=== PATIENT | female | born 2005 | race Two or more races ===

== ENCOUNTER 2024-05-21 04:14 | Emergency (ER) | payer MEDICAID, SELFPAY ==
[2024-05-21 04:15] VITALS: BP 120/80; PULSE 68; RESP 18; TEMP 36.9; O2SAT 98; BMI 25.6
--- NOTE | 2024-05-21 04:41 | XR_ITS ---
Examination: Pelvic ultrasound, transabdominal, complete Technique: Transabdominal ultrasound of the pelvis performed using grayscale imaging Date and time of exam: May 21, 2024 0513 hrs. Indications: Onset right lower abdominal pelvic pain today Findings: Uterus 6.6 x 3.2 x 3.7 cm No uterine mass or intrauterine gestation Endometrial stripe 0.7 cm Right ovary 2.4 x 1.3 x 2.3 cm arterial flow Left ovary 2.0 x 1.6 x 1.8 cm arterial flow No fluid in the cul-de-sac Impression: Negative examination
--- NOTE | 2024-05-21 04:42 | PD.EDRME ---
Rapid Medical Screening Exam RME Arrival date/time: 05/21/24 04:14 19-year-old female presents emergency department complaining of right lower abdomen/pelvic pain that is been ongoing since yesterday. Chief Complaint: Abdominal Pain Time Seen by Provider: 05/21/24 04:17 Vital signs: Vital Signs Temperature 98.4 F 05/21/24 04:15 Pulse Rate 68 05/21/24 04:15 Respiratory Rate 18 05/21/24 04:15 Blood Pressure 120/80 05/21/24 04:15 Pulse Oximetry (%) 98 05/21/24 04:15 Oxygen Delivery Method Room Air 05/21/24 04:15 Vital signs reviewed by provider: Yes
[2024-05-21 05:07] LABS: Basophils % (Auto) 0 % (0-2.5); Eosinophils # (Auto) 0.1 Thou/mm3 (0.0-0.5); Eosinophils % (Auto) 1 % (0-10); Hematocrit 37.7 % (36.0-46.0); Immature Granulocytes % (Auto) 0 % (0-0); Immature Granulocytes Auto 0.02 Thou/mm3 (0.00-0.00); Lymphocytes # (Auto) 1.7 Thou/mm3 (1.0-4.8); Lymphocytes % (Auto) 26 % (10-50); Mean Corpuscular HGB Conc 34.5 g/dl (31.0-37.0); Mean Corpuscular Hemoglobin 31.3 pg (25.0-35.0); Mean Corpuscular Volume 91 fL (80-100); Monocytes # (Auto) 0.6 Thou/mm3 (0.0-0.8); Monocytes % (Auto) 10 % (0-12); Neutrophils # (Auto) 4.2 Thou/mm3 (1.8-7.7); Neutrophils % (Auto) 63 % (37-80); Nucleated Red Blood Cell % 0 /100 WBC (0); Platelet Count 197 Thou/mm3 (140-440); RDW Standard Deviation 39.1 fL (36.4-46.3); Red Blood Count 4.15 Miln/mm3 (4.00-5.20); White Blood Count 6.7 Thou/mm3 (4.5-11.0)
[2024-05-21 05:28] LABS: HCG,Qualitative Serum Negative
[2024-05-21 05:31] LABS: Collection Type, Urine Clean Catch
[2024-05-21 05:36] LABS: Bacteria,Urine Rare; Bilirubin,Urine Negative (Negative); Blood,Urine 2+ (Negative); Clarity,Urine Clear (Clear/Hazy); Color,Urine Yellow (Lt Yel-Yel); Culture Indicated,Urine Not Indicated; Glucose, Urine Negative (Negative); Ketones,Urine Negative (Negative); Leukocyte Esterase,Urine Negative (Negative); Nitrite,Urine Negative (Negative); PH,Urine 6.5 (5.0-7.0); Protein,Urine 1+ (Neg - Trace); RBC,Urine 1 /hpf (0-3); Specific Gravity,Urine 1.027 (1.001-1.035); Squamous Epithelial Cell,Urine 2 /hpf (0-5); Urobilinogen,Urine Negative mg/dL (0.0-1.0); WBC,Urine 3 /hpf (0-5)
[2024-05-21 05:37] LABS: Alanine Aminotransferase 13 U/L (10-49); Albumin, Serum 4.4 gm/dL (3.5-5.0); Albumin/Globulin Ratio 1.8 (1.2-2.2); Alkaline Phosphatase 55 U/L (46-116); Anion Gap 8 (7-16); Aspartate Amino Transferase 15 U/L (0-34); BUN/Creatinine Ratio 16 Ratio (12-20); Bilirubin,Total 0.6 mg/dL (0.3-1.2); Blood Urea Nitrogen 13 mg/dL (9-23); Calcium 9.5 mg/dL (8.3-10.6); Calcium (Corrected) 9.5 mg/dL (8.5-10.1); Chloride 103 mMol/L (98-107); Creatinine (Component) 0.8 mg/dL (0.6-1.3); Estimated Creatinine Clearance 98.2 mL/min (>60); Globulin 2.5 gm/dL (2.3-3.5); Glucose 94 mg/dL (74-106); Lipase 33 U/L (12-53); Osmolality,Calculated 272 (275-295); Potassium 4.1 mMol/L (3.4-5.1); Sodium 136 mMol/L (136-145); Total Protein 6.9 gm/dL (5.7-8.2); eGFR > 60 See Note
[2024-05-21 05:38] LABS: C-Reactive Protein < 0.4 mg/dL (0.0-0.9)
--- NOTE | 2024-05-21 06:17 | PRELIM_ITS ---
Pelvic ultrasound (transabdominal). May 21, 2024 at 0513 hours Clinical history: Right pelvic pa in Technique: Real-time ultrasound was performed using Duplex scanning including arterial inflow, earle ous outflow, color and spectral Doppler analysis of both ovaries.Comparison: No prior study is availa ble for comparison. Findings:The uterus is normal in size measuring 6.7 x 3.2 x 3.7 cm. The endometri um is normal and measures 0.7 cm. No intrauterine gestational sac is seen at this time. The right ova ry measures 2.4 x 1.3 x 2.3 cm and is unremarkable.The left ovary measures 2 x 1.6 x 1.8 cm and is un remarkable.No sonographic evidence of ovarian torsion is demonstrated on the submitted images. No adn exal mass is demonstrated.There is no free fluid.Impression:1. No evidence of intrauterine gestation at this time. Possibilities include very early intrauterine , recent or occult ecto pic gestation. Recommend correlation with serum beta hCG and sonographic follow up.2. No sonographic evidence of ovarian torsion is demonstrated on the submitted images. Report Electronically Signed By : Blas Lindquist 05/21/2024 6:16:42 AM [EST]
--- NOTE | 2024-05-21 06:49 | PD.EDABDPN ---
ED Abdominal Pain RME/HPI General Chief Complaint: Abdominal Pain Stated complaint: RIGHT ABD PAIN Time seen by provider: 05/21/24 04:17 Arrival date/time: 05/21/24 04:14 19-year-old female with no significant medical problems presents the emergency department complaints of right-sided pelvic pain. Patient reports symptom onset yesterday patient reports since then symptoms have resolved and intermittent Limitations: no limitations RME / HPI RME / HPI narrative: 05/21/24 04:14 19-year-old female presents emergency department complaining of right lower abdomen/pelvic pain that is been ongoing since yesterday. Related Data Previous Rx's ?Medication ?Instructions ?Recorded diphenhydramine HCl 25 mg capsule 25 mg PO TID #14 caps 07/28/18 (Benadryl) ondansetron 4 mg disintegrating 4 mg PO QID PRN nausea and 07/28/18 tablet vomiting #20 tabs ibuprofen 600 mg tablet 600 mg PO Q6H #30 tabs 09/07/23 ondansetron 4 mg disintegrating 4 mg PO Q8H PRN nausea and 09/10/23 tablet vomiting #10 tabs Allergies Allergy/AdvReac Type Severity Reaction Status Date / Time No Known Allergies Allergy Verified 05/21/24 04:16 Review of Systems Review of Systems Systems Reviewed: All systems reviewed, normal except as documented Constitutional Constitutional: Reports system reviewed and no additional complaints, except as documented, Denies fever(s) and Denies headache(s) Eyes Eyes: Reports system reviewed and no additional complaints, except as documented and Denies blurry vision ENT Ears, Nose, Mouth, and Throat: Reports system reviewed and no additional complaints, except as documented, Denies headache(s), Denies nasal congestion and Denies nasal discharge Cardiovascular Cardiovascular: Reports system reviewed and no additional complaints, except as documented, Denies chest pain and Denies dyspnea Respiratory Respiratory: Reports system reviewed and no additional complaints, except as documented, Denies chest congestion, Denies cough and Denies dyspnea Gastrointestinal Gastrointestinal: Reports system reviewed and no additional complaints, except as documented and Denies abdominal pain Genitourinary Genitourinary: Reports system reviewed and no additional complaints, except as documented, Denies difficulty voiding and Reports pelvic pain Integumentary/Breasts Skin/Breast: Reports system reviewed and no additional complaints, except as documented and Denies rash Neurologic Neurologic: Reports system reviewed and no additional complaints, except as documented, Reports as per HPI and Denies headache(s) Past Medical History Past Medical History NEUROLOGIC: Negative Neurological Disorders CARDIAC: Negative Cardiac Disorders Social History SMOKING STATUS: Never smoker ED Exam General Limitations: Present no limitations General appearance: Present alert and in no apparent distress Head Head exam: Present atraumatic Eye Eye exam: Present normal appearance, PERRL and EOMI ENT ENT exam: Present normal exam, normal oropharynx and mucous membranes moist Neck Neck exam: Present normal inspection, full ROM and trachea midline Chest Chest inspection: Present normal inspection and symmetric chest wall rise Respiratory Respiratory exam: Present normal lung sounds bilaterally Cardiovascular Cardiovascular exam: Present regular rate, normal rhythm and normal heart sounds Abdominal Exam Abdominal exam: Present soft and normal bowel sounds; Absent distention, tenderness, guarding, rebound, rigidity, Hanson's sign or tenderness at McBurney's Point Abdominal tenderness: Absent RUQ or RLQ Extremities Exam Extremities exam: Present normal inspection and full ROM Back Exam Back exam: Present normal inspection and full ROM Neurological Exam Neurological exam: Present alert, oriented X3 and CN II-XII intact Psychiatric Psychiatric exam: Present normal affect and normal mood Skin Skin exam: Present warm, dry, intact and normal color Course Quality Measures none Orders Category Date Time Status US pelvic complete Stat Exams 05/21/24 04:41 Completed CBC Stat Lab 05/21/24 04:57 Completed CMP [Comprehensive Metabolic Panel] Stat Lab 05/21/24 04:57 Completed CRP [C-Reactive Protein] Stat Lab 05/21/24 04:57 Completed HCG,Qualitative Serum Stat Lab 05/21/24 04:57 Completed Lipase Stat Lab 05/21/24 04:57 Completed Urinalysis, C/S if Indicated Stat Lab 05/21/24 05:14 Completed Vital Signs Vital signs: Vital Signs Temperature 98.4 F 05/21/24 04:15 Pulse Rate 68 05/21/24 04:15 Respiratory Rate 18 05/21/24 04:15 Blood Pressure 120/80 05/21/24 04:15 Pulse Oximetry (%) 98 05/21/24 04:15 Oxygen Delivery Method Room Air 05/21/24 04:15 O2 saturation 98% r/a wnl Abdominal Pain MDM MDM Narrative MDM Narrative:: 19-year-old female with no significant medical problems presents the emergency department complaints of right-sided pelvic pain. Patient reports symptom onset yesterday patient reports since then symptoms have resolved and intermittent On exam patient well-appearing patient does not appear ill or toxic in no acute distress. Patient has nontender abdomen no McBurney's point tenderness Lab work as well as ultrasound completed Lab work no leukocytosis CRP is within normal limits ultrasound no acute emergent findings At the time of my encounter with this patient patient smiling patient does not appear ill or toxic Patient discharged home in no distress to follow-up with primary care doctor in the next 24 to 48 hours and for any worsening symptoms to return to the ER immediately Patient data External records reviewed:: [facility] previous records Clinical information provided by:: patient Social determinants that could affect healthcare access:: none Patient has the following chronic illnesses:: None How is presenting disease/condition affected by chronic disease/condition?: no chronic disease Evaluation data The following diagnostics were reviewed and interpreted by me:: lab results and radiology exam(s) Lab and/or radiology exams considered but not ordered:: Labs and radiology obtained Interpretation Summary: Reviewed by me Medications / Prescriptions Medications or Prescriptions considered but not ordered:: Given no meds Medication administrations:: Given no meds Consultations Consultation(s) initiated? (list below): No Diagnosis Differential diagnosis abdominal pain: abdominal pain, gastroenteritis and other (UTI, ovarian cyst) Most likely diagnosis given after review of the tests above:: Pelvic pain Admission Indicated Admission indicated?: not indicated Admission Request Was there a request for admission?: No Disposition Plan Disposition Plan: Discharge Discharge Attestation Discharge Attestation: The patient and all family members were given an opportunity to ask questions and understood the discharge instructions. Discharge instructions specifically effects, indications for sooner follow up or return to the emergency department, and the expected course of current diagnosis. Patient condition: Stable Discharge Plan Plan Patient Disposition: HOME (Self Care) Disposition Comment: Stable Prescriptions/Referrals Prescriptions/Med Rec: No Action ondansetron 4 mg tablet,disintegrating 4 mg PO QID PRN (Reason: nausea and vomiting) Qty: 20 0RF diphenhydramine HCl [Benadryl] 25 mg capsule 25 mg PO TID Qty: 14 0RF ibuprofen 600 mg tablet 600 mg PO Q6H Qty: 30 0RF ondansetron 4 mg tablet,disintegrating 4 mg PO Q8H PRN (Reason: nausea and vomiting) Qty: 10 0RF Problem List Clinical Impression: Pelvic pain Patient/Caregiver Discharge Instructions Education Materials: Medicine for Pain Additional Instructions: Please follow up with your primary care doctor in the next 24-48hrs for any worsening symptoms return here immediately Print Language: Citizen Of [place] Stand Alone Forms: Suzy Award Info., Patient Portal Info Letter Attestation Attestation The patient was seen by the midlevel practitioner. I, the co-signing physician, was present during the entire ER visit. While I did not physically examine the patient, I was available for consultation as needed.
[2024-05-21 06:52] VITALS: RESP 18
== END 2024-05-21 06:52 | disposition home or self-care (01) ==
LOC: SERX 06:54
PROVIDERS: Emergency Provider Emergency Medicine
DX: R10.2 Pelvic and perineal pain (principal)
CPT/HCPCS: 36415; 76856; 80053; 81001; 83690; 84703; 85025; 86140; 99284